=== PATIENT | male | born 1970 ===

== ENCOUNTER 2018-08-01 01:05 | Emergency (ER) | payer SELFPAY ==
[~2018-08-01] VITALS: Ht 172.7 cm; Wt 72.3 kg
[2018-08-01 01:06] VITALS: BP 187/100
--- NOTE | 2018-08-01 01:17 | NUR ---
FIRST CONTACT WITH PT. PT HERE WITH COMPLAINTS R WRIST PAIN STATES FELL YESTERDAY. PT'S AOX4. RESPS EVEN AND UNLABORED. PULSE +2 BILATERALLY. PT IS ABLE TO MOVE THE WRIST. DENIES ANY OTHER S/S.
--- NOTE | 2018-08-01 01:23 | NUR ---
pt states that he is leaving to go get a bandage.
== END 2018-08-01 01:54 | disposition left against medical advice (07) ==
LOC: ED 01:23
DX: M25.531 Pain in right wrist (principal); Z53.21 Procedure and treatment not carried out due to patient leaving prior to being seen by health care provider